=== PATIENT | male | born 1990 | race Caucasian/White ===

== ENCOUNTER 2017-10-11 08:05 | Emergency (ER) | payer SELFPAY ==
[2017-10-11 08:16] VITALS: BP 124/80
--- NOTE | 2017-10-11 08:38 | UC ---
Ear Complaint HPI - HPI Summary HPI Summary: 26 y/o male presents to the urgent care c/o Rt ear pain and bleeding since yesterday. Pt reports he was swimming and he usually has ear wax build up. He felt his ears plugged filled w/ water. he blew out to pop his ear and some wax came out w/ mild blood. Last night he developed ear pain and over night he blew out more more blood was draining from ear. Ear pain is mild 2/10. Pt states Hx of TM rupture since he wrestles and his ears have been injured in the past several times. Pt denies fever, REIS, decrease hearing, dizziness, SOB, chest pain, abdominal pain, N/V/D - History of Current Complaint Chief Complaint: UCEar Stated Complaint: EAR COMPLAINT Time Seen by Provider: 10/11/17 08:37 Hx Obtained From: Patient Onset/Duration: Sudden Onset, Lasting Days - 1 days, Still Present, Worse Since - today Severity Initially: Moderate Severity Currently: Moderate Pain Intensity: 2 Pain Scale Used: 0-10 Numeric Aggravating Factors: Other - touch Alleviating Factors: Nothing Associated Signs/Symptoms: Positive: Discharge - watery blood. Negative: Hearing Loss - Allergies/Home Medications Allergies/Adverse Reactions: Allergies Allergy/AdvReac Type Severity Reaction Status Date / Time No Known Allergies Allergy Verified 10/11/17 08:16 PMH/Surg Hx/FS Hx/Imm Hx Previously Healthy: Yes - Pt denies PMHX - Surgical History Surgical History: Yes Surgery Procedure, Year, and Place: adnoidectomy - Family History Known Family History: Positive: None - Pt denies FMHX Family History: NON CONTRIBUTORY - Social History Occupation: Employed Full-time Lives: With Family Alcohol Use: Occasionally Substance Use Type: None Smoking Status (MU): Never Smoked Tobacco Review of Systems Constitutional: Negative Skin: Negative Eyes: Negative ENT: Ear Ache - RT ear pain and bleeding w/ wax Respiratory: Negative Cardiovascular: Negative Gastrointestinal: Negative Genitourinary: Negative Motor: Negative Neurovascular: Negative Musculoskeletal: Negative Neurological: Negative Psychological: Negative Is Patient Immunocompromised?: No All Other Systems Reviewed And Are Negative: Yes Physical Exam - Summary Physical Exam Summary: Vital signs: reviewed General: well developed, well nourished male sitting in the examining table w/o any apparent distress Skin: [place], warm and dry, no evidence of atopic dermatitis, psoriasis, seborrhea. HEENT: -Head: atraumatic, non tender; no scalp dermatitis. -Eyes: sclera and conjunctiva clear, PERRLA, EOMI -Ears: no pre- or postauricular lymphadenopathy or erythema; RT external ear canal with moderate cerumen and dry blood observed unable to visualize TM, pinna tenderness on palpation, LF external ear canal clear impacted w/ cerumen unable to visualizeTM. Hearing intact -Nose/Face: erythematous and edematous nasal mucosa with clear rhinorrhea, no frontal or maxillary sinus tender to palpation. -Mouth/Throat: Mucous membrane moist, posterior pharynx clear, no erythema or exudates. Neck: supple, FROM, nontender, no lymphadenopathy, no meningismus. Chest: Clear to auscultation, normal breath sounds Abd: soft, Bowel sounds active, Nontender. Back: no spinal or CVAT Neuro: A&O x4, GCS 15, no focal neuro deficits, normal behavior for age. Triage Information Reviewed: Yes Vital Signs: Initial Vital Signs Temp 98.3 F 10/11/17 08:13 Pulse 70 10/11/17 08:13 Resp 18 10/11/17 08:13 BP 124/80 10/11/17 08:13 Pulse Ox 100 10/11/17 08:13 Ear Complaint Course/Dx - Course Course Of Treatment: 26 y/o male presents to the urgent care c/o Rt ear pain and bleeding since yesterday. Pt reports he was swimming and he usually has ear wax build up. He felt his ears plugged filled w/ water. he blew out to pop his ear and some wax came out w/ mild blood. Last night he developed ear pain and over night he blew out more more blood was draining from ear. Ear pain is mild 2 /10. Pt states Hx of TM rupture since he wrestles and his ears have been injured in the past several times. Pt denies fever, REIS, decrease hearing, dizziness, SOB, chest pain, abdominal pain, N/V/D. Hx obtained. Pt w/ left external ear canal still w/ cerumen and dry blood and RT exrtnal ear canl impacted w/ cerumen on examination. RT exteranl ear canal cerumen removed w/ ear speculum and Rt TM is completely rupture. LF ear irrigation ordered and performed by nurse. Left exernal ear canal w/ erythema and mild drainage. Pt tolerated well procedure. Dr Soria consulted on Pt's symptoms. She evaluted Pt and she agrees Pt TM is completely rupture and recommends F/U w/ ENT. Pt Rx Amoxicillin PO to prevent infection and Cortisporin otic drop to apply on left ear for LF exteranl otitis. 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 D/c instructions explained. Pt understood and agreed w/ plan of care. Pt left the clinic hemidynamically stable. - Differential Dx/Diagnosis Differential Diagnosis/HQI/PQRI: Barotrauma, Cerumen Impaction, Otitis Externa, Otitis Media, Perforated TM Provider Diagnoses: 1- RT TM perforation. 2-LF external ear canal cerumen impaction and acute otitis externa. 3- Otalgia - Physician Notifications Discussed Patient Care With: Kellen Soria - Dr Soria agreed w/ Pt's plan of care Discharge - Sign-Out/Discharge Documenting (check all that apply): Discharge/Admit/Transfer - D/c home - Discharge Plan Condition: Stable Disposition: HOME Prescriptions: Amoxicillin PO (*) [Amoxicillin 875 MG (*)] 875 mg PO BID #20 tab Ibuprofen TAB* [Motrin TAB* 600 MG] 600 mg PO Q6H PRN #20 tab PRN Reason: otalgia Neomyc/Polym/HC 1% OTIC SUSP* [Cortisporin Otic Susp 1%*] 4 drop LEFT EAR TID # 1 btl Patient Education Materials: Cerumen Impaction (ED), Ruptured Eardrum (ED) Referrals: Nandini Grider MD [Primary Care Provider] - 2 Days Dyllan Reyes MD [Medical Doctor] - 1 Day Additional Instructions: 1-Please apply otic antibiotic on your LF ear as directed. Take Amoxicillin PO as directed 2-Take ibuprofen PO after meals for pain and inflammation. 3- Please f/u w/ ENT Dr Reyes for further evaluation and treatment on your recurrent TM perforations - Billing Disposition and Condition Condition: STABLE Disposition: Home
== END 2017-10-11 09:34 | disposition home or self-care (01) ==
LOC: UCEAST 08:05
DX: H72.91 Unspecified perforation of tympanic membrane, right ear (principal); H60.92 Unspecified otitis externa, left ear; H61.22 Impacted cerumen, left ear
CPT/HCPCS: 99213; G0463